=== PATIENT | female | born 1995 | race Two or more races ===

== ENCOUNTER 2019-06-09 12:49 | Emergency (ER) | payer MEDICAID ==
[~2019-06-09] VITALS: Ht 157.5 cm; Wt 95.4 kg
[2019-06-09 13:15] VITALS: BP 161/101
--- NOTE | 2019-06-09 13:24 | NUR ---
PT HERE WITH C/O COUGH AND BILATERAL EAR PAIN X 10 DAYS, STATES RIGHT EAR IS WORSE THAN LEFT.
--- NOTE | 2019-06-09 14:05 | NUR ---
Patient/Caregiver given discharge instructions and they have confirmed that they understand the instructions. Patient ambulatory with steady gait.
== END 2019-06-09 14:10 | disposition home or self-care (01) ==
LOC: ED 14:00
DX: B34.9 Viral infection, unspecified (principal); H92.03 Otalgia, bilateral
CPT/HCPCS: 71046; 87081; 87880; 99284